=== PATIENT | male | born 1965 | race Caucasian/White ===

== ENCOUNTER 2024-10-11 15:09 | Emergency (ER) | payer MEDICARE, SELFPAY ==
[2024-10-11 15:10] VITALS: BP 130/75; PULSE 79; RESP 18; TEMP 36.9; O2SAT 97; BMI 25.8
--- NOTE | 2024-10-11 15:24 | ED_ITS ---
<Statement entered by Viviana Ramos DO - 10/11/24 18:55> I was consulted by the PRIETO, and we discussed the complexity of the problems being addressed. I approved the treatment and management plan for this patient's care in the emergency department, thus performing a substantive portion of the medical decision making. Viviana Ramos DO Discharge Plan Disposition Patient Disposition: Home, Self-Care Condition: Good Prescriptions Prescriptions: New lidocaine 5 % adhesive patch,medicated 1 patch topical DAILY Qty: 30 0RF Rx Instructions: leave on most painful area for up to 12 hrs Referrals Follow up/Referrals: Cristofer Cobos [Primary Care Provider] - See instructions Activity Restrictions/Add. Instructions Additional Instructions/Restrictions: Please continue taking Tylenol and ibuprofen alternating every 4 hours for symptomatic pain. You may use a Lidoderm patch over the area directly. If you have continued worsening or new symptoms follow-up with your PCP or return to the ER as needed. Clinical Impressions Clinical Impression: Costochondral separation Print Language Print Language: Bulgarian Discharge ED Provider: Viviana Ramos General Adult HPI General Chief complaint: PAIN Stated complaint: cough,rib pain from coughing Time Seen by Provider: 10/11/24 15:24 History of Present Illness HPI narrative: Patient presents for evaluation of left anterior chest wall pain. Patient states he was coughing this morning and felt a pop in his left anterior chest wall and it is hurt ever since. He reports it hurts worse when he takes a deep breath but still aches all the time. He denies any fever chills hemoptysis hematochezia melena shortness of breath. Related Data Previous Rx's ?Medication ?Instructions ?Recorded lidocaine 5 % topical patch 1 patch topical DAILY #30 ea 10/11/24 Allergies Allergy/AdvReac Type Severity Reaction Status Date / Time No Known Allergies Allergy Unverified 09/01/17 14:19 [facility] Disclaimer: The information contained in this section may have been updated after the patient was seen, as this information can be updated by other users. Social History Smoking Status: Current every day smoker alcohol intake: never current occupational status: retired Travel in the last 8 weeks: None ROS Obtained: Yes Systems reviewed as appropriate & no additional complaints except as documented Physical Exam General General appearance: alert and in no apparent distress Respiratory Respiratory exam: Present normal lung sounds bilaterally Cardiovascular Cardiovascular exam: Present regular rate Neurological Exam Neurological exam: Present alert and oriented X3 Medical Decision Making Medical Records Medical records reviewed: Yes I reviewed the patient's medical records. Screening: Per USPSTF and CDC recommendations, given the prevalence of disease in our region, it is our hospital?s policy to screen for HIV and viral Hepatitis for all patients aged 18 and over and those with ongoing risk factors. [place] Inquiry Pt receiving controlled substance: No Vital Signs: 10/11/24 15:10 10/11/24 16:50 Temperature 98.4 F 98.3 F Temperature Source Oral Pulse Rate 77 Pulse Rate [Left Radial] 79 Respiratory Rate 18 18 Blood Pressure 134/71 Blood Pressure [Right Arm] 130/75 Blood Pressure Mean [Right Arm] 93 02 Sat by Pulse Oximetry 97 Oxygen Delivery Method Room Air Room Air Orders (Tests/Meds): ED MEDICATIONS Discontinued Medications Generic Name Dose Route Start Last Admin Trade Name Freq PRN Reason Stop Dose Admin Acetaminophen 1,000 mg 10/11/24 15:36 10/11/24 15:53 Acetaminophen 500mg Tab PO 10/11/24 15:37 1,000 mg ONCE ONE Administration Ibuprofen 800 mg 10/11/24 15:36 10/11/24 15:53 Ibuprofen 400 Mg Tablet PO 10/11/24 15:37 800 mg ONCE ONE Administration Lidocaine 1 each 10/11/24 15:36 10/11/24 15:54 Lidocaine 5% Transdermal Patch TP 10/11/24 15:37 1 each ONCE ONE Administration Oxycodone HCl 5 mg 10/11/24 15:36 10/11/24 15:54 Oxycodone 5mg Immediate Release Tablet PO 10/11/24 15:37 5 mg ONCE ONE Administration ORDERS Category Date Time Status Chest XR 2 view (NOT portable) [XR chest 2V] Stat Exams 10/11/24 15:36 Completed Medical Decision Narrative: In summary patient is a 59-year-old male who presents to the emergency department for evaluation of chest wall pain. Patient is hemodynamically stable to blood pressure 130/75 pulse 79 with normal sinus rhythm on bedside monitor breathing 18 times a minute satting at 97% on room air upon arrival, afebrile at 98.4. Physical exam is remarkable for tenderness to palpation of the costal cartilage and the nipple line inferiorly left chest wall but no palpable deformity noted. Breath sounds clear and equal bilaterally to the bases.. Differential diagnosis includes costal cartilage separation versus costochondral separation. Initial workup will be conducted with plain film x-ray. Initial interventions include Tylenol ibuprofen Lidoderm patch oxycodone. Initial workup reviewed by me shows no bony deformity and my informal interpretation of his plain film chest x-ray had no obvious visible cartilage deformity and no acute pulmonary processes.. Upon repeat evaluation moderate improvement after initial intervention. Given this appropriate for discharge with recommendations for continued Tylenol Motrin continued deep breathing and a prescription for Lidoderm patch. Patient to follow-up with PCP for no improvement or worsening signs or symptoms or return to the ER as needed Critical Care Critical Care Time Critical Care Time: No
--- NOTE | 2024-10-11 15:36 | XR_ITS ---
FINAL REPORT TECHNIQUE: Chest PA & Lateral CLINICAL HISTORY: Cough and anterior chest wall pain COMPARISON: None FINDINGS: 2 views of the chest were performed. The heart size is normal. The mediastinum is within normal limits. The lungs are hyperinflated. Scarring is seen in the medial right upper lobe and in both bases. There is no acute airspace infiltrate seen. There are no pleural effusions. There is no pneumothorax. The bony thorax appears intact. IMPRESSION: No acute airspace infiltrate. Reviewed, Interpreted and Dictated by Lucio Peters MD Transcribed by Almaz Jessica Authenticated and [facility]
--- NOTE | 2024-10-11 15:42 | PC.NURSE ---
Pt being taken to get chest xray
--- NOTE | 2024-10-11 15:46 | PC.NURSE ---
pt arrived back to room
[2024-10-11] MEDS: ACETAMINOPHEN 500MG TAB 1000 MG PO (15:53)
[2024-10-11] MEDS: IBUPROFEN 400 MG TABLET 800 MG PO (15:53)
[2024-10-11] MEDS: OXYCODONE 5MG IMMEDIATE RELEASE TABLET 5 MG PO (15:54)
[2024-10-11] MEDS: LIDOCAINE 5% TRANSDERMAL PATCH 1 EACH TP (15:54)
[2024-10-11 16:50] VITALS: BP 134/71; PULSE 77; RESP 18; TEMP 36.8; O2SAT 97
== END 2024-10-11 16:52 | disposition home or self-care (01) ==
PROVIDERS: Emergency Provider Emergency Medicine; PCP Family Medicine
DX: S23.29XA Dislocation of other parts of thorax, initial encounter (principal); R07.89 Other chest pain; R05.9 Cough, unspecified
CPT/HCPCS: 71046; 99283